=== PATIENT | male | born 1965 | race Caucasian/White ===

== ENCOUNTER 2016-09-17 13:57 | Emergency (ER) | payer MEDICARE, MEDICAID ==
[~2016-09-17] VITALS: Ht 175.3 cm; Wt 99.8 kg
[~2016-09-17 13:57] MED LIST: ABIL5TAB5 PO; DOXY150C PO; MOTR200T44 PO; TYLE325T5 PO; augmentin OR; cipro OR; lithium OR
[2016-09-17] MEDS ORDERED: BUPR150T3 (14:14)
[2016-09-17] MEDS ORDERED: ASPI81TA85 PO (14:14)
[2016-09-17] MEDS ORDERED: VERA240C (14:14)
[2016-09-17] MEDS ORDERED: LAMO200T (14:14)
[2016-09-17] MEDS ORDERED: ACETAMINOPH W/CODEINE #3 TAB UD PO ONE (15:45)
[2016-09-17] MEDS ORDERED: LIDOCAINE VISCOUS 2% SOLN 15ML UDC MT ONE (15:45)
[2016-09-17] MEDS ORDERED: AMOX875T PO (15:50)
[2016-09-17] MEDS ORDERED: ACET30TAB PO (15:50)
[2016-09-17 16:09] VITALS: BP 129/95
== END 2016-09-17 16:09 | disposition home or self-care (01) ==
LOC: M ED 15:37
DX: K08.89 Other specified disorders of teeth and supporting structures (principal)

== ENCOUNTER 2017-03-21 07:26 | Emergency (ER) | payer MEDICARE, MEDICAID ==
[~2017-03-21] VITALS: Ht 177.8 cm; Wt 100.0 kg
[~2017-03-21 07:26] MED LIST changes: +ABIL1TAB11 PO; -ABIL5TAB5 PO; +ACET30TAB PO; +AMOX875T PO; +ASPI81TA85 PO; +BUPR150T3; +LAMO200T PO; +VERA240C; -lithium OR; +lithium PO
[2017-03-21] MEDS ORDERED: ASPIRIN 81 MG CHEW TABLET PO ONE (08:45)
[2017-03-21 09:04] LABS: BASO % 0.8 % (0.0-1.0); EOS # 0.2 K/mm3 (0.0-0.50); EOS % 4.5 % (0.0-3.0); LARGE UNSTAINED CELL # 0.1 K/mm3 (0.0-0.4); LARGE UNSTAINED CELL % 2.5 % (0.0-4.0); LYMPH # 1.5 K/mm3 (1.5-4.5); LYMPH % 27.4 % (24.0-44.0); MEAN CORPUSCULAR HEMOGLOBIN 33.5 pg (27.0-33.0); MEAN CORPUSCULAR HGB CONC 34.6 g/dl (32.0-36.5); MONO # 0.3 K/mm3 (0.0-0.8); MONO % 5.7 % (0.0-5.0); NEUTROPHILS # 3.3 K/mm3 (1.8-7.7); NEUTROPHILS % 59.1 % (36.0-66.0); PLATELET COUNT, AUTOMATED 258 k/mm3 (150-450); RED CELL DISTRIBUTION WIDTH 12.2 % (11.5-14.5); WHITE BLOOD COUNT 5.5 K/mm3 (4.0-10.0)
[2017-03-21 09:17] LABS: ALBUMIN 3.8 GM/DL (3.2-5.2); ALKALINE PHOSPHATASE 58 U/L (45-117); ALT/SGPT 153 U/L (12-78); ANION GAP 10 MEQ/L (8-16); AST/SGOT 65 U/L (15-37); BILIRUBIN,DIRECT 0.2 MG/DL (0.0-0.2); BILIRUBIN,TOTAL 0.9 MG/DL (0.2-1.0); BLOOD UREA NITROGEN 18 MG/DL (7-18); CALCIUM LEVEL 8.6 MG/DL (8.5-10.1); CARBON DIOXIDE LEVEL 23 MEQ/L (21-32); CHLORIDE LEVEL 109 MEQ/L (98-107); CREATININE FOR GFR 0.87 MG/DL (0.70-1.30); GLOMERULAR FILTRATION RATE > 60.0 (>56); GLUCOSE, FASTING 111 MG/DL (70-105); POTASSIUM SERUM 4.1 MEQ/L (3.5-5.1); SODIUM LEVEL 142 MEQ/L (136-145); TOTAL PROTEIN 7.6 GM/DL (6.4-8.2)
[2017-03-21 09:24] VITALS: BP 119/85
--- NOTE | 2017-03-21 09:24 | REP ---
CHEST, SINGLE VIEW: There is no evidence of acute infiltrate. No pleural effusion is seen. The heart is normal in size. The mediastinal silhouette is unremarkable. The visualized osseous structures are intact. IMPRESSION: No acute pulmonary disease. Signed by Rupesh Mcclendon MD 03/21/2017 01:45 P
--- NOTE | 2017-03-21 20:09 | ECGEPIP ---
Stationary ECG Study [facility] - ED Test Date: 2017-03-21 Pat Name: KAYLENE WERNER Department: Room: - Gender: M Glove Turner And Former Automatic: arielle : 1965 Requested By: Eduin Lazo Order Number: [id number] Reading MD: Eduin Moore Measurements Intervals [place] Rate: 74 P: 45 [place]: 183 QRS: 21 QRSD: 99 T: 30 QT: 367 QTc: 408 Interpretive Statements SINUS RHYTHM POSSIBLE LAE SIMILAR TO 10/02/15 Electronically Signed On 03-21-2017 20:08:54 EDT by Eduin Moore
[2017-05-08] MEDS ORDERED: FLON1SPR (19:38)
[2017-05-08] MEDS ORDERED: TESS100C PO (19:38)
[2017-05-08] MEDS ORDERED: AUGM875T28 PO (19:38)
== END 2017-03-21 09:28 | disposition home or self-care (01) ==
LOC: M ED 07:26
DX: R07.89 Other chest pain (principal); Z72.0 Tobacco use

== ENCOUNTER 2017-07-17 13:30 | Emergency (ER) | payer MEDICARE, MEDICAID ==
[2017-07-17 14:14] LABS: BEDSIDE GLUCOSE 114 MG/DL (70-105)
[2017-07-17 14:22] LABS: BASO # 0.1 10^3/uL (0.0-0.2); BASO % 0.5 % (0.0-1.0); EOS # 0.2 10^3/uL (0.0-0.50); EOS % 2.1 % (0.0-3.0); HEMATOCRIT 41.2 % (42.0-52.0); HEMOGLOBIN 13.9 g/dl (14.0-18.0); IMMATURE GRANULOCYTE % 0.3 % (0-0); LYMPH # 2.8 10^3/uL (1.5-4.5); LYMPH % 27.2 % (24.0-44.0); MEAN CORPUSCULAR HEMOGLOBIN 32.5 pg (27.0-33.0); MEAN CORPUSCULAR HGB CONC 33.7 g/dl (32.0-36.5); MEAN CORPUSCULAR VOLUME 96.3 fl (80.0-96.0); MONO # 1.2 10^3/uL (0.0-0.8); MONO % 11.6 % (0.0-5.0); NEUTROPHILS % 58.3 % (36.0-66.0); PLATELET COUNT, AUTOMATED 440 10^3/uL (150-450); RED BLOOD COUNT 4.28 10^6/uL (4.30-6.10); RED CELL DISTRIBUTION WIDTH 12.1 % (11.5-14.5); WHITE BLOOD COUNT 10.3 10^3/uL (4.0-10.0)
[2017-07-17 14:31] LABS: ANION GAP 4 MEQ/L (8-16); BLOOD UREA NITROGEN 13 MG/DL (7-18); CARBON DIOXIDE LEVEL 28 MEQ/L (21-32); CHLORIDE LEVEL 106 MEQ/L (98-107); CREATININE FOR GFR 0.97 MG/DL (0.70-1.30); GLOMERULAR FILTRATION RATE > 60.0 (>56); GLUCOSE, FASTING 105 MG/DL (70-105); SODIUM LEVEL 138 MEQ/L (136-145)
[2017-07-17 14:47] LABS: SALICYLATE LEVEL < 1.7 MG/DL (5.0-30.0)
[2017-07-17] MEDS: MECLIZINE 25 MG TABLET PO (15:05)
[2017-07-21 00:06] LABS: LAMOTRIGINE (LAMICTAL) 5.3 ug/mL (2.0-20.0)
== END 2017-07-17 17:04 | disposition home or self-care (01) ==
LOC: M ED 13:30
DX: R42 Dizziness and giddiness (principal); H93.13 Tinnitus, bilateral; R00.0 Tachycardia, unspecified; F33.9 Major depressive disorder, recurrent, unspecified; Z82.49 Family history of ischemic heart disease and other diseases of the circulatory system; F12.20 Cannabis dependence, uncomplicated
CPT/HCPCS: 93005

== ENCOUNTER → 2017-07-23 | Outpatient (CLI) | payer MEDICARE, MEDICAID ==
[2017-07-23 11:56] LABS: BLOOD UREA NITROGEN 19 MG/DL (7-18)
[2017-07-23 11:56] LABS: CREATININE FOR GFR 1.02 MG/DL (0.70-1.30); GLOMERULAR FILTRATION RATE > 60.0 (>56); THYROID STIMULATING HORMONE 0.655 uIU/ML (0.358-3.740)
[2017-07-23 11:59] LABS: LITHIUM LEVEL 0.77 MEQ/L (0.60-1.20)
[2017-07-27 14:15] LABS: LAMOTRIGINE (LAMICTAL) 2.5 ug/mL (2.0-20.0)
== END ==
LOC: M LAB 10:36
DX: F31.9 Bipolar disorder, unspecified (principal)
CPT/HCPCS: 82565

== ENCOUNTER → 2017-08-23 | Outpatient (REF) | payer MEDICARE, MEDICAID ==
[2017-08-23 20:38] LABS: BASO # 0.1 10^3/uL (0.0-0.2); BASO % 0.8 % (0.0-1.0); EOS # 0.3 10^3/uL (0.0-0.50); EOS % 4.1 % (0.0-3.0); HEMATOCRIT 41.9 % (42.0-52.0); HEMOGLOBIN 14.1 g/dl (14.0-18.0); IMMATURE GRANULOCYTE % 0.4 % (0-3.0); LYMPH # 2.8 10^3/uL (1.5-4.5); MEAN CORPUSCULAR HEMOGLOBIN 32.9 pg (27.0-33.0); MEAN CORPUSCULAR HGB CONC 33.7 g/dl (32.0-36.5); MEAN CORPUSCULAR VOLUME 97.7 fl (80.0-96.0); MONO # 0.8 10^3/uL (0.0-0.8); MONO % 9.8 % (0.0-5.0); NEUTROPHILS # 3.8 10^3/uL (1.8-7.7); NEUTROPHILS % 48.9 % (36.0-66.0); PLATELET COUNT, AUTOMATED 290 10^3/uL (150-450); RED BLOOD COUNT 4.29 10^6/uL (4.30-6.10); RED CELL DISTRIBUTION WIDTH 12.7 % (11.5-14.5); WHITE BLOOD COUNT 7.8 10^3/uL (4.0-10.0)
[2017-08-23 21:03] LABS: TOTAL 25(OH) VITAMIN D 23.2 NG/ML (30.0-100.0)
[2017-08-23 21:12] LABS: ALBUMIN 3.9 GM/DL (3.2-5.2); ALBUMIN/GLOBULIN RATIO 1.15 (1.00-1.93); ALKALINE PHOSPHATASE 64 U/L (45-117); ALT/SGPT 115 U/L (12-78); ANION GAP 5 MEQ/L (8-16); AST/SGOT 54 U/L (7-37); BILIRUBIN,TOTAL 0.4 MG/DL (0.2-1.0); BLOOD UREA NITROGEN 16 MG/DL (7-18); CALCIUM LEVEL 8.4 MG/DL (8.5-10.1); CARBON DIOXIDE LEVEL 27 MEQ/L (21-32); CHLORIDE LEVEL 111 MEQ/L (98-107); CHOLESTEROL LEVEL 106 MG/DL (<200); CHOLESTEROL RISK RATIO 2.523 (<5); CREATININE FOR GFR 0.92 MG/DL (0.70-1.30); GLOMERULAR FILTRATION RATE > 60.0 (>56); GLUCOSE, FASTING 89 MG/DL (70-100); HDL CHOLESTEROL 42 MG/DL (>40); LDL CHOLESTEROL 54.2 MG/DL (<100); NON-HDL-C 64 MG/DL; POTASSIUM SERUM 4.7 MEQ/L (3.5-5.1); SODIUM LEVEL 143 MEQ/L (136-145); TOTAL PROTEIN 7.3 GM/DL (6.4-8.2); TRIGLYCERIDES LEVEL 49 MG/DL (<150)
[2017-08-23 21:42] LABS: ESTIMATED AVERAGE GLUCOSE 111 MG/DL (60-110); HEMOGLOBIN A1c 5.5 %
[2017-08-23 21:43] LABS: HIV 1&2 SCREEN CENTAUR NEGATIVE (NEGATIVE)
[2017-08-25 10:50] LABS: HEPATITIS C VIRUS ABY INDEX > 11.0 INDEX (<0.8)
[2017-08-28 00:06] LABS: HCV RNA NAA QUALITATIVE Positive (Negative)
== END ==
LOC: M LAB REF 20:15
DX: Z00.01 Encounter for general adult medical examination with abnormal findings (principal); Z11.3 Encounter for screening for infections with a predominantly sexual mode of transmission; B18.2 Chronic viral hepatitis C; E66.09 Other obesity due to excess calories
CPT/HCPCS: 84443

== ENCOUNTER → 2017-11-20 | Outpatient (CLI) | payer MEDICARE, MEDICAID ==
[2017-11-20 12:57] LABS: HEPATITIS B SURFACE ANTIBODY NEGATIVE (POSITIVE)
[2017-11-21 08:06] LABS: HEPATITIS A IgG TOTAL Negative (Negative)
[2017-11-22 08:06] LABS: HCV RNA (INTERNATIONAL UNITS) 19736000 IU/mL (.); HEPATITIS C QUANTITATION See Final Results IU/mL (.)
== END ==
LOC: M LAB 11:19
DX: B18.2 Chronic viral hepatitis C (principal)
CPT/HCPCS: 86706

== ENCOUNTER → 2017-12-25 | Outpatient (REF) | payer MEDICARE, MEDICAID ==
[2017-12-25 16:17] LABS: BASO # 0.1 10^3/uL (0.0-0.2); EOS # 0.4 10^3/uL (0.0-0.50); EOS % 4.3 % (0.0-3.0); HEMATOCRIT 43.6 % (42.0-52.0); IMMATURE GRANULOCYTE % 0.2 % (0-3.0); LYMPH # 2.8 10^3/uL (1.5-4.5); LYMPH % 33.9 % (24.0-44.0); MEAN CORPUSCULAR HEMOGLOBIN 33.3 pg (27.0-33.0); MEAN CORPUSCULAR HGB CONC 34.4 g/dl (32.0-36.5); MEAN CORPUSCULAR VOLUME 96.9 fl (80.0-96.0); MONO # 0.6 10^3/uL (0.0-0.8); MONO % 7.9 % (0.0-5.0); NEUTROPHILS # 4.3 10^3/uL (1.8-7.7); NEUTROPHILS % 52.7 % (36.0-66.0); PLATELET COUNT, AUTOMATED 291 10^3/uL (150-450); RED CELL DISTRIBUTION WIDTH 12.3 % (11.5-14.5); WHITE BLOOD COUNT 8.1 10^3/uL (4.0-10.0)
[2017-12-26 09:26] LABS: ALPHA FETOPROTEIN TUMOR QUANT 1.7 NG/ML (<8.1)
[2017-12-27 10:31] LABS: HEPATITIS B SURFACE ANTIGEN NEGATIVE (NEGATIVE)
[2017-12-29 15:02] LABS: ALPHA 2-MACROGLOBULIN 288 mg/dL (110-276); ALT 211 IU/L (0-55); APOLIPOPROTEIN A-1 130 mg/dL (101-178); FIBROSIS STAGE F1-F2 (.); GGT 55 IU/L (0-65); HAPTOGLOBIN 131 mg/dL (34-200); HEPATITIS B CORE ANTIBODY IGG Negative (Negative); HEPATITIS C VIRUS GENOTYPE 3 (.); NECROINFLAM SCORE 0.84 (0.00-0.17); NECROINFLAMM GRADE A3-Severe activity (.); TOTAL BILIRUBIN 0.3 mg/dL (0.0-1.2)
== END ==
LOC: M SFHCPLAZ 11:58
DX: B18.2 Chronic viral hepatitis C (principal); F31.75 Bipolar disorder, in partial remission, most recent episode depressed; F19.11 Other psychoactive substance abuse, in remission; Z87.898 Personal history of other specified conditions; Z79.899 Other long term (current) drug therapy; Z86.79 Personal history of other diseases of the circulatory system; Z87.891 Personal history of nicotine dependence
CPT/HCPCS: 84460

== ENCOUNTER 2018-07-18 15:05 | Emergency (ER) | payer MEDICARE, MEDICAID ==
[~2018-07-18] VITALS: Ht 177.8 cm; Wt 100.0 kg
[~2018-07-18 15:05] MED LIST changes: +AUGM875T28 PO; -BUPR150T3; +BUPR150T3 PO; +FLON1SPR; -LAMO200T PO; +LAMO200T2 PO; +MECL-68 PO; +MUCI30TA5 PO; +TESS100C PO
[2018-07-18 15:23] LABS: BASO # 0.1 10^3/uL (0.0-0.2); BASO % 0.5 % (0.0-1.0); EOS # 0.3 10^3/uL (0.0-0.50); EOS % 2.4 % (0.0-3.0); HEMOGLOBIN 15.6 g/dl (13.5-17.5); LYMPH # 3.3 10^3/uL (1.5-4.5); LYMPH % 26.4 % (24.0-44.0); MEAN CORPUSCULAR HEMOGLOBIN 33.1 pg (27.0-33.0); MEAN CORPUSCULAR HGB CONC 34.7 g/dl (32.0-36.5); MEAN CORPUSCULAR VOLUME 95.3 fl (80.0-96.0); MONO # 1.1 10^3/uL (0.0-0.8); MONO % 8.5 % (0.0-5.0); NEUTROPHILS # 7.8 10^3/uL (1.8-7.7); PLATELET COUNT, AUTOMATED 264 10^3/uL (150-450); RED BLOOD COUNT 4.72 10^6/uL (4.30-6.10); WHITE BLOOD COUNT 12.6 10^3/uL (4.0-10.0)
--- NOTE | 2018-07-18 15:38 | REP ---
Chest one-view HISTORY: Chest pain Comparison: 03/21/2017 The lungs are clear. The heart is normal in size. The pulmonary vasculature is normal in appearance. Impression: No acute disease. Electronically Signed by Lai Perez MD 07/18/2018 03:30 P
[2018-07-18 15:45] LABS: INR 0.96; PROTHROMBIN TIME 12.9 SECONDS (12.1-14.4)
[2018-07-18 16:01] LABS: ALBUMIN 3.8 GM/DL (3.2-5.2); ALT/SGPT 22 U/L (12-78); BILIRUBIN,DIRECT 0.1 MG/DL (0.0-0.2); BILIRUBIN,TOTAL 0.6 MG/DL (0.2-1.0); BLOOD UREA NITROGEN 21 MG/DL (7-18); CARBON DIOXIDE LEVEL 25 MEQ/L (21-32); CHLORIDE LEVEL 108 MEQ/L (98-107); CPK CREATINE PHOSPHOKINASE 185 U/L (39-308); CREATININE FOR GFR 1.02 MG/DL (0.70-1.30); GLOMERULAR FILTRATION RATE > 60.0 (>56); GLUCOSE, FASTING 121 MG/DL (70-100); LIPASE 191 U/L (73-393); MB/CK RELATIVE INDEX 1.14 (< OR =4); NT-PRO BNP 25 PG/ML (<125); SODIUM LEVEL 142 MEQ/L (136-145); TOTAL PROTEIN 7.2 GM/DL (6.4-8.2); TROPONIN I < 0.02 NG/ML (< 0.10)
[2018-07-18 19:25] LABS: CPK CREATINE PHOSPHOKINASE 160 U/L (39-308); MB/CK RELATIVE INDEX 1.12 (< OR =4); TROPONIN I < 0.02 NG/ML (< 0.10)
[2018-07-18 20:20] LABS: AMPHETAMINES LEVEL URINE NEGATIVE (NEGATIVE); BARBITURATES URINE NEGATIVE (NEGATIVE); BENZODIAZEPINES URINE NEGATIVE (NEGATIVE); CANNABINOIDS URINE POSITIVE (NEGATIVE); COCAINE METABOLITE URINE NEGATIVE (NEGATIVE); METHADONE URINE NEGATIVE (NEGATIVE); OPIATES URINE NEGATIVE (NEGATIVE); PHENCYCLIDINE URINE NEGATIVE (NEGATIVE)
[2018-07-18 21:20] VITALS: BP 126/84
--- NOTE | 2018-07-19 07:54 | ECGEPIP ---
Stationary ECG Study [facility] - ED Test Date: 2018-07-18 Pat Name: KAYLENE WERNER Department: Room: - Gender: M Media Analytics Manager: : 1965 Requested By: Delilah Paula Order Number: [id number] Reading MD: Eduin Moore Measurements Intervals [place] Rate: 108 P: 55 PA: 186 QRS: 28 QRSD: 93 T: 25 QT: 306 QTc: 411 Interpretive Statements SINUS TACHYCARDIA NSTTW ABNORMALITIES RATE CHANGE COMPARED TO 07/17/18 Electronically Signed On 07-19-2018 7:54:45 EST by Eduin Moore
--- NOTE | 2018-07-19 08:02 | ECGEPIP ---
Stationary ECG Study [facility] - ED Test Date: 2018-07-18 Pat Name: KAYLENE WERNER Department: Room: - Gender: M Quality Assurance Calibrator: ANSELMO : 1965 Requested By: Delilah Paula Order Number: [id number] Reading MD: Eduin Moore Measurements Intervals [place] Rate: 83 P: 59 [place]: 200 QRS: 26 QRSD: 96 T: 30 QT: 347 QTc: 410 Interpretive Statements SINUS RHYTHM NSTTW ABNORMALITIES RATE CHANGE COMPARED TO PRIOR ON SAME DATE Electronically Signed On 07-19-2018 8:02:11 EST by Eduin Moore
== END 2018-07-18 21:20 | disposition home or self-care (01) ==
LOC: EDBD 15:05 → M ED 15:05
DX: R00.2 Palpitations (principal)

== ENCOUNTER → 2018-11-08 | Outpatient (CLI) | payer MEDICARE, MEDICAID ==
[~2018-11-08] MED LIST changes: +ACET-716 PO; -ACET30TAB PO; +BUPR300T34 PO; +COLA100C5 PO; +GASTROGRAFIN SOLUTION 30ML (Q9963) As Ordered ONE; +ISOVUE-370 76% 100ML VIAL (Q9967) As Ordered ONE; +METO50TA7 PO
--- NOTE | 2018-11-08 17:12 | REP ---
REASON FOR EXAM: Melena. PRIORS: None. CONTRAST: 100 mL Isovue-370. The lung bases are clear. The liver, gallbladder, spleen, pancreas, adrenal glands, and right kidney are unremarkable. In the left kidney there are three tiny cortical cysts. The largest measures 1.8 cm and has water Hounsfield unit readings. The abdominal aorta and paraortic regions are within normal limits. The bowel loops and their mesenteries are within normal limits. There is no free fluid or free air. There is no intraabdominal mass or adenopathy. CT PELVIS: There is no mass or adenopathy. There is no free fluid or free air. The bowel loops and their mesenteries are within normal limits. Bone window technique throughout the exam shows the osseous structures to be within normal limits for the patient's age. IMPRESSION:There is no acute intraabdominal or intrapelvic disease. Findings are decreased above. A negative CT scan in regards to the bowel does not obviate further investigation of the bowel loops in patient's presenting with melena. Electronically Signed by Panchito Adan DO 11/09/2018 09:38 A
== END ==
LOC: M RAD 14:47
PROVIDERS: ATTEND Internal Medicine Gastroenterology
DX: N28.1 Cyst of kidney, acquired (principal)
CPT/HCPCS: 74177; Q9963; Q9967

== ENCOUNTER 2018-11-21 17:45 | Emergency (ER) | payer MEDICARE, MEDICAID ==
[~2018-11-21] VITALS: Ht 175.3 cm; Wt 86.4 kg
[~2018-11-21 17:45] MED LIST changes: -GASTROGRAFIN SOLUTION 30ML (Q9963) As Ordered ONE; -ISOVUE-370 76% 100ML VIAL (Q9967) As Ordered ONE; +PAXI10TA12 PO; -VERA240C; +VERA240C PO
[2018-11-21 18:22] LABS: BASO # 0.1 10^3/uL (0.0-0.2); BASO % 0.5 % (0.0-1.0); EOS # 0.2 10^3/uL (0.0-0.50); EOS % 1.8 % (0.0-3.0); HEMATOCRIT 45.1 % (42.0-52.0); HEMOGLOBIN 15.9 g/dl (13.5-17.5); LYMPH # 3.6 10^3/uL (1.5-4.5); LYMPH % 30.9 % (24.0-44.0); MEAN CORPUSCULAR HEMOGLOBIN 33.6 pg (27.0-33.0); MEAN CORPUSCULAR HGB CONC 35.3 g/dl (32.0-36.5); MEAN CORPUSCULAR VOLUME 95.3 fl (80.0-96.0); MONO # 0.8 10^3/uL (0.0-0.8); MONO % 6.8 % (0.0-5.0); NEUTROPHILS # 6.9 10^3/uL (1.8-7.7); NEUTROPHILS % 59.8 % (36.0-66.0); PLATELET COUNT, AUTOMATED 307 10^3/uL (150-450); RED BLOOD COUNT 4.73 10^6/uL (4.30-6.10); WHITE BLOOD COUNT 11.5 10^3/uL (4.0-10.0)
--- NOTE | 2018-11-21 18:27 | REP ---
Clinical: Acute chest pain . Comparison: 07/18/2018 . Findings: The mediastinum and cardiac silhouette are stable and within normal limits for portable technique. The lung booth are clear without acute consolidation, effusion, or pneumothorax. Skeletal structures are intact. Impression: No acute cardiopulmonary process appreciated. Electronically Signed by Arnold Pink MD 11/21/2018 06:18 P
[2018-11-21 18:32] LABS: INR 0.95; PROTHROMBIN TIME 12.8 SECONDS (12.1-14.4)
[2018-11-21 18:33] LABS: PARTIAL THROMBOPLASTIN TIME 33.1 SECONDS (25.4-37.6)
[2018-11-21 18:48] LABS: BLOOD UREA NITROGEN 25 MG/DL (7-18); CALCIUM LEVEL 9.2 MG/DL (8.5-10.1); CARBON DIOXIDE LEVEL 24 MEQ/L (21-32); CHLORIDE LEVEL 107 MEQ/L (98-107); CK-MB VALUE MASS < 1.0 NG/ML (<3.6); CPK CREATINE PHOSPHOKINASE 160 U/L (39-308); CREATININE FOR GFR 0.94 MG/DL (0.70-1.30); GLOMERULAR FILTRATION RATE > 60.0 (>56); GLUCOSE, FASTING 120 MG/DL (70-100); MB/CK RELATIVE INDEX 0.62 (< OR =4); POTASSIUM SERUM 3.9 MEQ/L (3.5-5.1); SODIUM LEVEL 139 MEQ/L (136-145); TROPONIN I < 0.02 NG/ML (< 0.10)
[2018-11-21 21:15] LABS: CK-MB VALUE MASS < 1.0 NG/ML (<3.6); CPK CREATINE PHOSPHOKINASE 158 U/L (39-308); MB/CK RELATIVE INDEX 0.63 (< OR =4); TROPONIN I < 0.02 NG/ML (< 0.10)
[2018-11-21 21:45] VITALS: BP 109/68
--- NOTE | 2018-11-22 07:27 | ECGEPIP ---
[facility] - ED Test Date: 2018-11-21 Pat Name: KAYLENE WERNER Department: Room: - Gender: Male Facilities Assistant: JILL : 1965 Requested By: ОЛЬГА Gaines Order Number: [id number] Reading MD: Eduin Moore Measurements Intervals [place] Rate: 95 P: 53 DC: 168 QRS: 3 QRSD: 101 T: 30 QT: 342 QTc: 431 Interpretive Statements SINUS RHYTHM SIMILAR TO 07/18/18 Electronically Signed on 11-22-2018 7:26:52 EDT by Eduin Moore
--- NOTE | 2018-11-22 07:29 | ECGEPIP ---
[facility] - ED Test Date: 2018-11-21 Pat Name: KAYLENE WERNER Department: Room: - Gender: Male Peoplesoft Programmer: Regis : 1965 Requested By: INGRID Burns Order Number: [id number] Reading MD: Eduin Moore Measurements Intervals [place] Rate: 69 P: 26 ME: 188 QRS: QRSD: 97 T: 21 QT: 385 QTc: 415 Interpretive Statements SINUS RHYTHM SIMILAR TO PRIOR ON SAME DATE Electronically Signed on 11-22-2018 7:28:49 EDT by Eduin Moore
== END 2018-11-21 22:08 | disposition home or self-care (01) ==
LOC: M ED 17:45
DX: R07.9 Chest pain, unspecified (principal); R00.0 Tachycardia, unspecified; R00.2 Palpitations; F33.9 Major depressive disorder, recurrent, unspecified; B19.20 Unspecified viral hepatitis C without hepatic coma; F19.11 Other psychoactive substance abuse, in remission; F10.11 Alcohol abuse, in remission

== ENCOUNTER 2018-12-03 12:02 | Day surgery (SDC) | payer MEDICARE, MEDICAID ==
[~2018-12-03] VITALS: Ht 175.3 cm; Wt 87.5 kg
[~2018-12-03 12:02] MED LIST changes: +LIDOCAINE 2% INJ 100 MG/5 ML SDV (FOR ANES.) As Ordered ONE; +NS 1,000 ML IV ONE; +PROPOFOL 200 MG/20 ML VIAL As Ordered ONE
--- NOTE | 2018-12-03 13:07 | ROOR ---
Patient Name: Frandy Hays Procedure Date: 12/03/2018 12:53 PM Date of : 1965 Age: 53 Room: [facility] Gender: Male Note Status: Finalized Procedure: Upper GI endoscopy Indications: Weight loss Providers: Edy HUNTER MD Referring MD: Latricia PAEZ NP Requesting Provider: Medicines: Monitored Anesthesia Care Complications: No immediate complications. Procedure: Pre-Anesthesia Assessment: - The heart rate, respiratory rate, oxygen saturations, blood pressure, adequacy of pulmonary ventilation, and response to care were monitored throughout the procedure. The Endoscope was introduced through the mouth, and advanced to the second part of duodenum. The upper GI endoscopy was accomplished without difficulty. The patient tolerated the procedure well. Findings: The esophagus was normal. The stomach was normal. The examined duodenum was normal. Biopsies for histology were taken with a cold forceps in the second portion of the duodenum for evaluation of celiac disease. Impression: - Normal esophagus. - Normal stomach. - Normal examined duodenum. - Biopsies were taken with a cold forceps for evaluation of celiac disease. Recommendation: - Telephone endoscopist for pathology results in 2 weeks. - Return to referring physician as previously scheduled. Edy Hunter MD Edy HUNTER MD 12/03/2018 1:06:58 PM Electronically signed by Edy HUNTER MD Number of Addenda: 0 Note Initiated On: 12/03/2018 12:53 PM Estimated Blood Loss: Estimated blood loss: none.
[2018-12-03] MEDS ORDERED: PROPOFOL 200 MG/20 ML VIAL As Ordered ONE (13:19)
--- NOTE | 2018-12-03 13:24 | ROOR ---
Patient Name: Frandy Hays Procedure Date: 12/03/2018 12:53 PM Date of : 1965 Age: 53 Room: [facility] Gender: Male Note Status: Finalized Procedure: Colonoscopy Indications: Hematochezia, Positive fecal immunochemical test Providers: Edy HUNTER MD Referring MD: Latricia PAEZ NP Requesting Provider: Medicines: Monitored Anesthesia Care Complications: No immediate complications. Procedure: Pre-Anesthesia Assessment: - The heart rate, respiratory rate, oxygen saturations, blood pressure, adequacy of pulmonary ventilation, and response to care were monitored throughout the procedure. The Colonoscope was introduced through the anus and advanced to 15 cm into the ileum. The colonoscopy was performed without difficulty. The patient tolerated the procedure well. The quality of the bowel preparation was good. Findings: The perianal and digital rectal examinations were normal. Internal hemorrhoids were found during retroflexion. The hemorrhoids were medium-sized. The entire examined colon appeared normal on direct and retroflexion views. The terminal ileum appeared normal. Impression: - Internal hemorrhoids. - The entire colon is normal on direct and retroflexion views. - The examined portion of the ileum was normal. - No specimens collected. Recommendation: - Use fiber, for example Citrucel, Fibercon, Konsyl or Metamucil. - Return to referring physician as previously scheduled. Edy Hunter MD Edy HUNTER MD 12/03/2018 1:23:39 PM Electronically signed by Edy HUNTER MD Number of Addenda: 0 Note Initiated On: 12/03/2018 12:53 PM Estimated Blood Loss: Estimated blood loss: none.
[2018-12-03 13:40] VITALS: BP 126/92
== END 2018-12-03 13:56 | disposition home or self-care (01) ==
LOC: M OPP 12:02
PROVIDERS: ATTEND Internal Medicine Gastroenterology
DX: K64.8 Other hemorrhoids (principal); K92.1 Melena; R19.5 Other fecal abnormalities; R63.4 Abnormal weight loss

== ENCOUNTER 2018-12-31 13:08 | Emergency (ER) | payer MEDICARE, MEDICAID ==
[~2018-12-31] VITALS: Ht 175.3 cm; Wt 87.7 kg
[~2018-12-31 13:08] MED LIST changes: -LIDOCAINE 2% INJ 100 MG/5 ML SDV (FOR ANES.) As Ordered ONE; -NS 1,000 ML IV ONE; -PROPOFOL 200 MG/20 ML VIAL As Ordered ONE
[2018-12-31] MEDS ORDERED: CYMB1CAP4 PO (13:31)
[2018-12-31] MEDS ORDERED: CLON-412 PO (13:31)
--- NOTE | 2018-12-31 14:09 | REP ---
Clinical: Head injury with loss of consciousness . Comparison: 05/08/2017 . Findings: The ventricles, sulci, and cisterns are normal in position and appearance. Mcclendon-white differentiation is maintained. No acute intracranial hemorrhage, mass/mass effect, pathology or trauma/injury. No evidence for acute infarction. No extra-axial fluid collection. Calvarium is intact. Mucoperiosteal changes to the frontal and ethmoid sinuses consistent with chronic sinusitis. Impression: Sinus disease. No evidence for acute intracranial pathology or trauma/injury. Electronically Signed by Arnold Pink MD 12/31/2018 02:00 P
[2018-12-31] MEDS ORDERED: IBUPROFEN 600 MG TAB PO ONE (14:45)
[2018-12-31] MEDS ORDERED: ADACEL/BOOSTRIX VACCINE (DIPHTH/PERTUSS/ACELL/TETANUS)0.5ML SYR (90715) IM ONE (14:45)
--- NOTE | 2018-12-31 14:59 | REP ---
Clinical: Trauma. Technique: Axial noncontrast images from the skull base to the thoracic inlet with coronal and sagittal re-formations. Findings: Moderate multilevel degenerative changes are appreciated including endplate sclerosis, marginal osteophytes, and disc space narrowing along with mild hypertrophic facet changes. Straightening of normal lordosis may be secondary to positioning versus pain/spasm. No acute fracture / compression injury or subluxation. Spinal canal is patent. Posterior elements and spinous processes are intact. Paravertebral soft tissues are normal. Impression: Moderate multilevel degenerative spondylosis. No acute fracture / compression injury or subluxation. Electronically Signed by Arnold Pink MD 12/31/2018 02:50 P
--- NOTE | 2018-12-31 15:02 | REP ---
Clinical: Trauma. Technique: Axial noncontrast images from T12 through mid sacrum with coronal and sagittal re-formations. Findings: Alignment is maintained. Vertebral bodies are intact. There is no evidence for acute fracture / compression injury or subluxation. Mild multilevel degenerative changes include endplate sclerosis with marginal spurring/osteophyte formation. Spinal canal is patent. Posterior elements and spinous processes are intact. Paravertebral soft tissues are normal. Impression: Mild multilevel degenerative changes. No acute fracture / compression injury or subluxation. Electronically Signed by Arnold Pink MD 12/31/2018 02:54 P
[2018-12-31 15:37] VITALS: BP 113/73
== END 2018-12-31 15:38 | disposition home or self-care (01) ==
LOC: M ED 13:08
DX: S80.211A Abrasion, right knee, initial encounter (principal); S09.90XA Unspecified injury of head, initial encounter; W01.198A Fall on same level from slipping, tripping and stumbling with subsequent striking against other object, initial encounter; Y92.838 Other recreation area as the place of occurrence of the external cause; Y93.01 Activity, walking, marching and hiking; M47.9 Spondylosis, unspecified; M54.9 Dorsalgia, unspecified; G43.909 Migraine, unspecified, not intractable, without status migrainosus; F32.9 Major depressive disorder, single episode, unspecified; Z79.899 Other long term (current) drug therapy

== ENCOUNTER 2019-01-03 22:16 | Inpatient (IN) | payer MEDICARE, MEDICAID ==
[~2019-01-03] VITALS: Ht 175.3 cm; Wt 84.8 kg
[~2019-01-03 22:16] MED LIST changes: +CLON-412 PO; +CYMB1CAP4 PO
[2019-01-03 22:48] LABS: HEMATOCRIT 39.5 % (42.0-52.0); HEMOGLOBIN 13.5 g/dl (13.5-17.5); MEAN CORPUSCULAR HEMOGLOBIN 33.9 pg (27.0-33.0); MEAN CORPUSCULAR HGB CONC 34.2 g/dl (32.0-36.5); MEAN CORPUSCULAR VOLUME 99.2 fl (80.0-96.0); PLATELET COUNT, AUTOMATED 246 10^3/uL (150-450); RED BLOOD COUNT 3.98 10^6/uL (4.30-6.10); WHITE BLOOD COUNT 6.9 10^3/uL (4.0-10.0)
[2019-01-03 23:25] LABS: ACETAMINOPHEN LEVEL < 2.0 UG/ML (10.0-30.0); ALBUMIN 3.9 GM/DL (3.2-5.2); ALT/SGPT 23 U/L (12-78); BILIRUBIN,DIRECT 0.2 MG/DL (0.0-0.2); BILIRUBIN,TOTAL 0.5 MG/DL (0.2-1.0); BLOOD UREA NITROGEN 17 MG/DL (7-18); CALCIUM LEVEL 8.3 MG/DL (8.5-10.1); CARBON DIOXIDE LEVEL 21 MEQ/L (21-32); CHLORIDE LEVEL 110 MEQ/L (98-107); CREATININE FOR GFR 0.98 MG/DL (0.70-1.30); ETHYL ALCOHOL (ETHANOL) 0.149 % (0.000-0.010); GLOMERULAR FILTRATION RATE > 60.0 (>56); GLUCOSE, FASTING 97 MG/DL (70-100); POTASSIUM SERUM 3.6 MEQ/L (3.5-5.1); SALICYLATE LEVEL 2.4 MG/DL (5.0-30.0); SODIUM LEVEL 144 MEQ/L (136-145); TOTAL PROTEIN 7.4 GM/DL (6.4-8.2)
[2019-01-04 00:07] LABS: AMPHETAMINES LEVEL URINE NEGATIVE (NEGATIVE); BARBITURATES URINE NEGATIVE (NEGATIVE); BENZODIAZEPINES URINE NEGATIVE (NEGATIVE); CANNABINOIDS URINE POSITIVE (NEGATIVE); COCAINE METABOLITE URINE POSITIVE (NEGATIVE); METHADONE URINE NEGATIVE (NEGATIVE); OPIATES URINE NEGATIVE (NEGATIVE); PHENCYCLIDINE URINE NEGATIVE (NEGATIVE)
[2019-01-04] MEDS ORDERED: MOM 30ML SUSPENSION UDC PO PRN (02:15)
[2019-01-04] MEDS ORDERED: MAALOX 30 ML SUSP *UDC PO PRN (02:15)
[2019-01-04] MEDS ORDERED: LORazepam 2 MG TAB PO PRN (02:15)
[2019-01-04] MEDS ORDERED: ACETAMINOPHEN TAB 650MG DOSE (2X325MG) PO PRN (02:15)
[2019-01-04] MEDS ORDERED: NICOTINE 21MG/24HR 1 EA TRANSDERMAL TD PRN (02:15)
[2019-01-04 03:11] VITALS: BP 124/88
[2019-01-04 03:13] VITALS: BP 124/88
[2019-01-04] MEDS: THIAMINE 100 MG TAB PO SCH ×3 (03:47→21:09)
[2019-01-04] MEDS ORDERED: BUPR300T34 PO (03:53)
[2019-01-04 04:00] VITALS: BP 124/88
[2019-01-04] MEDS: FOLIC ACID 1 MG TAB PO SCH (09:47)
[2019-01-04] MEDS: MULTIVITAMINS/MINERALS THERAP 1 TAB PO SCH (09:47)
[2019-01-04] MEDS: OLANZapine ORAL DISINTEGRATING TAB 5MG PO PRN (10:55)
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
[2019-01-04] MEDS ORDERED: DULoxetine 20 MG CAP (CYMBALTA) PO ONE (11:15)
[2019-01-04 18:00] VITALS: BP 130/79
[2019-01-05 06:40] VITALS: BP 142/90
[2019-01-05] MEDS: MULTIVITAMINS/MINERALS THERAP 1 TAB PO SCH (08:15)
[2019-01-05] MEDS: FOLIC ACID 1 MG TAB PO SCH (08:15)
[2019-01-05] MEDS: cloNIDine 0.1 MG TAB PO PRN (08:16)
[2019-01-05] MEDS: THIAMINE 100 MG TAB PO SCH ×2 (08:16→21:10)
[2019-01-05] MEDS: DULoxetine 20 MG CAP (CYMBALTA) PO SCH (08:16)
[2019-01-05] MEDS: OLANZapine ORAL DISINTEGRATING TAB 5MG PO PRN ×3 (09:19→21:10)
--- NOTE | 2019-01-05 12:37 | MHIPN ---
DATE: 01/05/2019 SUBJECTIVE: "I am less depressed, I do not have suicidal thoughts and Zyprexa is helping". OBJECTIVE: He is a 53-year-old male with history of depression and substance abuse who was admitted as his daughter called 911, but her father left home. He was seen wandering intoxicated. He complained of suicidal thoughts. Currently denies any suicidal thoughts and denies using alcohol regularly. He drank alcohol on 01/03/2019. He reports he has quit drinking a long time ago. MENTAL STATUS EXAMINATION: Well groomed with clean clothes. Behavior is cooperative. Made good eye contact. Mood is euthymic. Affect is full range. Speech rate, rhythm and volume are good. Thought process linear, goal directed. Thought content: Denied any delusions. Denies suicidal or homicidal ideas. He is alert, oriented to time, place, person and situation. His memory is normal. Insight and judgment are fair. VITAL SIGNS: Temperature 99, pulse 96, respirations 18, blood pressure 142/90. MEDICATIONS: - Cymbalta 20 mg daily - clonidine 0.1 mg three times a day as needed LABS: CBC and CMP within normal limits. Toxicology was positive for cocaine and cannabis. Ethyl alcohol level was 0.149. ASSESSMENT: Depressive disorder, not otherwise specified. Polysubstance use disorder. PLAN: Continue current medications. Consider referring him to rehabilitation. ESTIMATED LENGTH OF STAY: 2-3 days.
[2019-01-05 18:11] VITALS: BP 122/77
[2019-01-06 06:32] VITALS: BP 123/80
[2019-01-06] MEDS: DULoxetine 20 MG CAP (CYMBALTA) PO SCH (08:01)
[2019-01-06] MEDS: THIAMINE 100 MG TAB PO SCH (08:01)
[2019-01-06] MEDS: OLANZapine ORAL DISINTEGRATING TAB 5MG PO PRN ×2 (08:01→13:59)
[2019-01-06] MEDS: MULTIVITAMINS/MINERALS THERAP 1 TAB PO SCH (08:01)
[2019-01-06] MEDS: FOLIC ACID 1 MG TAB PO SCH (08:01)
--- NOTE | 2019-01-06 14:23 | MHIPN ---
DATE: 01/06/2019 SUBJECTIVE: I am feeling better. I do not have suicidal thoughts. OBJECTIVE: This is a 53-year-old male with a history of depression and substance abuse. He was admitted because of bizarre behavior after getting intoxicated on drugs. He also complained of suicidal thoughts but he currently denies. MENTAL STATUS EXAMINATION: Well groomed with clean clothes. Mood is cooperative. Made good eye contact. Mood is euthymic. Affect is full range. Speech rate, rhythm and volume are good. Thought process linear and goal directed. Thought content denied any delusions. Denied suicidal or homicidal ideas. He is alert and oriented to time place and person and situation. Insight and judgment are good. VITAL SIGNS: Temperature 98.0, pulse 62, respiratory rate 12, blood pressure 123/80. DIAGNOSIS: Depressive disorder unspecified. Polysubstance use disorder. PLAN: Since patient is improving. I will continue the same medication. Considering referring to a rehabilitation. Estimated length of stay 2-3 days.
[2019-01-06 18:11] VITALS: BP 125/79
[2019-01-06] MEDS: traZODone 50 MG TAB PO PRN (21:18)
[2019-01-06 21:19] VITALS: BP 154/92
[2019-01-06] MEDS: cloNIDine 0.1 MG TAB PO PRN (21:19)
[2019-01-06 22:00] VITALS: BP 125/79
[2019-01-07 06:00] VITALS: BP 134/82
[2019-01-07 08:00] VITALS: BP 132/82
[2019-01-07] MEDS: FOLIC ACID 1 MG TAB PO SCH (08:34)
[2019-01-07] MEDS: MULTIVITAMINS/MINERALS THERAP 1 TAB PO SCH (08:34)
[2019-01-07] MEDS: DULoxetine 20 MG CAP (CYMBALTA) PO SCH (08:34)
--- NOTE | 2019-01-07 12:24 | MHIPNPDOC ---
[facility] Progress Note Progress Note Inpatient Progress Note Frandy Handy Date of : N/A Date of Service: 01/07/2019 History of Present Illness The patient is a 53-year-old man with a history of alcohol use presents in an acutely decompensated state with reported safety issues. Interval History The patient is met with today. He describes that he is doing much better and that his medications currently in the unit are fairly helpful for his mood. He describes that he was originally told he would be leaving today but that due to a change in providers that he will not be discharged today. It is unclear as the patient was not originally slated for discharge as far as his provider was aware. No notations of any significant behavioral issues on the unit. Review Of Systems Denies any side effects of his medications. Psychotherapy None. Vital Signs Reviewed. Mental Status Examination General: Well dressed with good hygiene Speech: Spontaneous and fluid Thought processes: Linear and logical MSK: Smooth and coordinated gait, no signs of tremors or involuntary orofacial movements Thought content: Future orientated Abstract reasoning, and computation: Intact Description of associations: Intact Description of abnormal or psychotic thoughts: Denies any suicidal or homicidal ideation. Denies any auditory or visual hallucinations. Does not appear to be responding to internal stimuli. Does not appear to be endorsing any bizarre or paranoid ideation. Judgment: fair Insight: fair Orientation: Alert and orientated 3 Cognition: Grossly normal Recent and remote memory: Intact Attention span and concentration: Intact Fund of knowledge: Adequate Mood: "okay" Affect: Euthymic with a full range Diagnoses Unspecified depressive disorder. Alcohol use disorder, severe. Cocaine use disorder, severe. Cannabis use disorder, severe. Assessment and Plan The patient is a 53-year-old man with possible substance-induced depression presents due to being admitted after he had made passive suicidal statements. He reports doing well in the unit since resuming his home Cymbalta and clonidine. The plan is to continue his home medications as below as he has been on the unit doing well with them. Disposition The patient will continue to need an inpatient admission in order to create a safe discharge plan and to ensure a lower chance of readmission. Time Spent 15 minutes [id number]. Vital Signs Vital Signs Date Time Temp Pulse Resp B/P (MAP) Pulse Ox O2 Delivery O2 Flow Rate FiO2 01/07/19 08:00 66 132/82 01/07/19 06:00 98.7 18 01/05/19 06:40 97 01/04/19 01:25 Room Air Current Medications Current Medications Acetaminophen (Tylenol Tab) 650 mg Q6HP PRN PO HEADACHE or DISCOMFORT; Start 01/04/19 at 02:15 Al Hydrox/Mg Hydrox/Simethicone (Mylanta) 30 ml Q4HP PRN PO HEARTBURN/INDIGESTION; Start 01/04/19 at 02:15 Clonidine HCl (Catapres) 0.1 mg TID PRN PO ANXIETY/AGITATION Last administered on 01/06/19 21:19; Start 01/04/19 at 11:15 Duloxetine HCl (Cymbalta) 20 mg DAILY PO Last administered on 01/07/19 08:34; Start 01/05/19 at 09:00 Folic Acid (Folic Acid) 1 mg DAILY PO Last administered on 01/07/19 08:34; Start 01/04/19 at 09:00 Home Med (Med Rec Complete!) ASDIRECTED XX ; Start 01/04/19 at 04:00; Stop 01/04/19 at 04:00; Status DC Lorazepam (Ativan) 2 mg ASDIRECTED PRN PO SEE PROTOCOL; Start 01/04/19 at 02:15 Magnesium Hydroxide (Milk Of Magnesia) 30 ml DAILYPRN PRN PO CONSTIPATION; Start 01/04/19 at 02:15 Multivitamins (Theragram-M) 1 tab DAILY PO Last administered on 01/07/19 08:34; Start 01/04/19 at 09:00 Nicotine (Nicoderm Cq 21mg) 1 patch DAILY PRN TD CRAVING; Start 01/04/19 at 02:15 Olanzapine (ZyPREXA ZYDIS) 5 mg Q4HP PRN PO AGITATION Last administered on 01/06/19 13:59; Start 01/04/19 at 02:15 Thiamine HCl (Thiamine HCl) 100 mg BID PO Last administered on 01/06/19 08:01; Start 01/04/19 at 02:26; Stop 01/06/19 at 09:01; Status DC Trazodone HCl (Desyrel) 50 mg QHSP PRN PO INSOMNIA Last administered on 7/7/19at 21:18; Start 01/04/19 at 02:15 Allergies Coded Allergies: No Known Allergies (Verified , 01/03/19) SAL OVALLE DO Jan 07, 2019 12:24
[2019-01-07] MEDS: OLANZapine ORAL DISINTEGRATING TAB 5MG PO PRN ×2 (17:46→21:36)
[2019-01-07 18:00] VITALS: BP 137/84
[2019-01-07] MEDS: traZODone 50 MG TAB PO PRN (21:36)
[2019-01-08 06:49] VITALS: BP 125/79
[2019-01-08 07:40] VITALS: BP 125/79
[2019-01-08] MEDS: FOLIC ACID 1 MG TAB PO SCH (08:42)
[2019-01-08] MEDS: MULTIVITAMINS/MINERALS THERAP 1 TAB PO SCH (08:42)
[2019-01-08] MEDS: DULoxetine 20 MG CAP (CYMBALTA) PO SCH (08:42)
--- NOTE | 2019-01-08 10:23 | MHIPNPDOC ---
[facility] Progress Note Progress Note DATE OF SERVICE: 01/08/19 HISTORY: Patient is a 53 -year-old , male, with a history of substance abuse and depression, last admission [facility] 2002 who was brought to ED by EMS aft er pt's daugher called 911 b/c pt intoxicated with alcohol stating he was suicidal and then leaving the home to later by found [place] PD [place] [address] "to go to [place]" b/c he apparently has family there per ED. In ED pt was a poor historian and stated he didn't remember saying was suicidal and that [place] [address] [place] to hitchhike to [place]. He denied SI/HI, halluci nations, delusions in the ED. VITAL SIGNS: See below. NEW TEST RESULTS: See below. CURRENT MEDICATIONS: See below. MENTAL STATUS EXAMINATION: General Appearance: well groomed, appears stated age, hospital scubs/clothing Build: average Demeanor: average Eye Contact: average Activity: average Behavior: cooperative Speech: clear, spontaneous, reg/rate,rhythm,volume Mood: anxious Mood "ok" Affect: full, appropriate, congruent, anxious Thought Process: logical/linear, intact Thought Content (Delusions): none reported, denies SI, HI, AVH Thought Content (Other): none reported Thought Content (Aggressive): none reported Perception (Hallucinations): none reported Perception (Other): none reported Cognition (Impairment of): memory (lacks some memory of last night due to a lcohol intoxification) Cognition(Intelligence Est.): average Oriented: Awake, Alert, Oriented times three Insight: fair Judgment: Fair Psychosis: Denies DIAGNOSES: Depression unspecified R/O substance induced depression secondary alcohol alcohol/cocaine/cannabis use d/o ASSESSMENT:Pt seen and states that his mood is better. States he talked to his and plans to not drink anymore. States he slept well last night. Feels he is tolerating his medications and they're beneficial. He is not attending groups b/c "I don't care for them" and highly encouraged to go to learn coping skills for mood, anxiety, substance abuse. He denies SI/HI, hallucinations, delusions. Pt feels safe here. MANAGEMENT PLAN: d/c home tomorrow Medications: cymbalta 20mg daily clonidine 0.1mg tid prn anxiety TIME SPENT: 30 minutes. Vital Signs Vital Signs Date Time Temp Pulse Resp B/P (MAP) Pulse Ox O2 Delivery O2 Flow Rate FiO2 01/08/19 07:40 60 125/79 01/08/19 06:49 97.0 18 01/05/19 06:40 97 01/04/19 01:25 Room Air Current Medications Current Medications Acetaminophen (Tylenol Tab) 650 mg Q6HP PRN PO HEADACHE or DISCOMFORT; Start 01/04/19 at 02:15 Al Hydrox/Mg Hydrox/Simethicone (Mylanta) 30 ml Q4HP PRN PO HEARTBURN/INDIGESTION; Start 01/04/19 at 02:15 Clonidine HCl (Catapres) 0.1 mg TID PRN PO ANXIETY/AGITATION Last administered on 01/06/19at 21:19; Start 01/04/19 at 11:15 Duloxetine HCl (Cymbalta) 20 mg DAILY PO Last administered on 01/08/19at 08:42; Start 01/05/19 at 09:00 Folic Acid (Folic Acid) 1 mg DAILY PO Last administered on 01/08/19at 08:42; Start 01/04/19 at 09:00 Home Med (Med Rec Complete!) ASDIRECTED XX ; Start 01/04/19 at 04:00; Stop 01/04/19 at 04:00; Status DC Lorazepam (Ativan) 2 mg ASDIRECTED PRN PO SEE PROTOCOL; Start 01/04/19 at 02:15 Magnesium Hydroxide (Milk Of Magnesia) 30 ml DAILYPRN PRN PO CONSTIPATION; Start 01/04/19 at 02:15 Multivitamins (Theragram-M) 1 tab DAILY PO Last administered on 01/08/19at 08:42; Start 01/04/19 at 09:00 Nicotine (Nicoderm Cq 21mg) 1 patch DAILY PRN TD CRAVING; Start 01/04/19 at 02 :15 Olanzapine (ZyPREXA ZYDIS) 5 mg Q4HP PRN PO AGITATION Last administered on 01/07/19at 21:36; Start 01/04/19 at 02:15 Thiamine HCl (Thiamine HCl) 100 mg BID PO Last administered on 01/06/19at 08:01; Start 7/5/19 at 02:26; Stop 01/06/19 at 09:01; Status DC Trazodone HCl (Desyrel) 50 mg QHSP PRN PO INSOMNIA Last administered on 01/07/19at 21:36; Start 01/04/19 at 02:15 Allergies Coded Allergies: No Known Allergies (Verified , 01/03/19) CRISTOPHER ZEE DO Jan 08, 2019 10:23 am
[2019-01-08] MEDS: OLANZapine ORAL DISINTEGRATING TAB 5MG PO PRN (10:24)
[2019-01-08 18:00] VITALS: BP 131/86
[2019-01-08] MEDS: traZODone 50 MG TAB PO PRN (21:19)
[2019-01-09 06:54] VITALS: BP 136/79
[2019-01-09] MEDS: FOLIC ACID 1 MG TAB PO SCH (08:25)
[2019-01-09] MEDS: DULoxetine 20 MG CAP (CYMBALTA) PO SCH (08:25)
[2019-01-09] MEDS: MULTIVITAMINS/MINERALS THERAP 1 TAB PO SCH (08:25)
--- NOTE | 2019-01-09 09:11 | MHDSPDOC ---
[facility] Discharge Summary Discharge Summary DATE OF ADMISSION: Jan 04, 2019 at 2:12 am DATE OF DISCHARGE: January 09, 2019 DISCHARGE DIAGNOSES: Depression unspecified R/O substance induced depression secondary alcohol alcohol/cocaine/cannabis use d/o REASON FOR ADMISSION: Patient is a 53 -year-old , male, with a history of substance abuse and depression, last admission [facility] 2002 who was brought to ED by EMS after pt's daugher called 911 b/c pt intoxicated with alcohol stating he was suicidal and then leaving the home to later by found by PD [place] [address] "to go to [place]" b/c he apparently has family there per ED. In ED pt was a poor historian and stated he didn't remember saying was suicidal and that he was on [address] [place] try to hitchhike to [place]. He denied SI/HI, hallucinations, delusions in the ED. CONSULTANTS INVOLVED: none TREATMENT AND PROGRESS ON THE UNIT : Pt was admitted to [facility], seen for psychiatric assessment and restarted on his outpatient medication cymbalta 20mg daily for mood. He was provided clonidine 0.1mg tid prn anxiety and trazodone 50mg qhs prn insomnia. Pt found his medications beneficial and tolerated them well. He attended groups daily during his stay. His symptoms improved with treatment. On day of discharge he denied depression, anxiety, insomnia, SI/HI, hallucinations, delusions. He was discharged home with follow-up at [facility] and [facility] He felt safe for discharge. DISCHARGE ASSESSMENT: Pt seen and states that his mood is good and looking forward to going home today. States he talked to his and plans to not drink anymore and is motivated to stop. States he slept well last night. Feels he is tolerating his medications and they're beneficial. He is attending groups after highly encouraged to go to learn coping skills yesterday. He denies depression, anxiety, insomnia, SI/HI, hallucinations, delusions. Pt feels safe to be discharged home today MENTAL STATUS EXAMINATION ON DISCHARGE: General Appearance: well groomed, appears stated age, own clothing Build: average Demeanor: average Eye Contact: average Activity: average Behavior: cooperative Speech: clear, spontaneous, reg/rate,rhythm,volume Mood: euthymic, full Mood "good" Affect: full, appropriate, congruent Thought Process: logical/linear, intact Thought Content (Delusions): none reported, denies SI, HI, AVH Thought Content (Other): none reported Thought Content (Aggressive): none reported Perception (Hallucinations): none reported Perception (Other): none reported Cognition (Impairment of): memory (lacks some memory of admission night due to alcohol intoxification) that is now functioning normally with treatment and no alcohol use Cognition(Intelligence Est.): average Oriented: Awake, Alert, Oriented times three Insight: good Judgment: good Psychosis: Denies MEDICATIONS ON DISCHARGE: cymbalta 20mg daily clonidine 0.1mg tid prn anxiety PLAN/FOLLOWUP ARRANGEMENTS: d/c home with follow-up at [facility] and [facility]. The amount of time spent in the coordination of care for this patient was approximately 30 minutes. Vital Signs/I&Os Vital Signs Date Time Temp Pulse Resp B/P (MAP) Pulse Ox O2 Delivery O2 Flow Rate FiO2 01/09/19 06:54 97.4 74 14 136/79 (98) 01/05/19 06:40 97 01/04/19 01:25 Room Air Medications Scheduled Duloxetine HCl (Cymbalta) 20 Mg Capsule.dr, 20 MG PO DAILY for , (Reported) Scheduled PRN Clonidine HCl (Clonidine HCl) 0.1 Mg Tablet, 0.1 MG PO TID PRN for ANXIETY, (Reported) Allergies Coded Allergies: No Known Allergies (Verified , 01/03/19) CRISTOPHER ZEE DO Jan 09, 2019 9:11 am
[2019-01-09] MEDS ORDERED: CYMB1CAP4 PO (11:24)
[2019-01-09] MEDS ORDERED: CLON-412 PO (11:24)
== END 2019-01-09 11:55 | disposition home or self-care (01) | DRG 881 ==
LOC: M ED 22:16 → M ED INP 01-04 02:12 → M PSY 01-04 02:56
PROVIDERS: ADMIT Psychiatry & Neurology Psychiatry; ATTEND Psychiatry & Neurology Psychiatry
DX: F32.9 Major depressive disorder, single episode, unspecified (principal); F10.24 Alcohol dependence with alcohol-induced mood disorder; F14.20 Cocaine dependence, uncomplicated; F10.229 Alcohol dependence with intoxication, unspecified; F12.20 Cannabis dependence, uncomplicated; F17.200 Nicotine dependence, unspecified, uncomplicated; Z62.810 Personal history of physical and sexual abuse in childhood; Z62.811 Personal history of psychological abuse in childhood; Z79.899 Other long term (current) drug therapy

== ENCOUNTER → 2019-01-15 | Outpatient (CLI) | payer MEDICARE, MEDICAID ==
[2019-01-15 12:13] LABS: BASO # 0.1 10^3/uL (0.0-0.2); EOS # 0.3 10^3/uL (0.0-0.50); EOS % 5.4 % (0.0-3.0); HEMATOCRIT 40.4 % (42.0-52.0); HEMOGLOBIN 13.4 g/dl (13.5-17.5); LYMPH # 2.4 10^3/uL (1.5-4.5); LYMPH % 40.8 % (24.0-44.0); MEAN CORPUSCULAR HEMOGLOBIN 33.3 pg (27.0-33.0); MEAN CORPUSCULAR HGB CONC 33.2 g/dl (32.0-36.5); MEAN CORPUSCULAR VOLUME 100.5 fl (80.0-96.0); MONO # 0.7 10^3/uL (0.0-0.8); MONO % 11.5 % (0.0-5.0); NEUTROPHILS # 2.4 10^3/uL (1.8-7.7); PLATELET COUNT, AUTOMATED 267 10^3/uL (150-450); RED BLOOD COUNT 4.02 10^6/uL (4.30-6.10); WHITE BLOOD COUNT 5.9 10^3/uL (4.0-10.0)
[2019-01-15 12:24] LABS: INR 0.96; PROTHROMBIN TIME 12.5 SECONDS (11.8-14.0)
[2019-01-15 12:43] LABS: ALBUMIN 3.4 GM/DL (3.2-5.2); ALT/SGPT 24 U/L (12-78); BILIRUBIN,TOTAL 0.3 MG/DL (0.2-1.0); BLOOD UREA NITROGEN 18 MG/DL (7-18); CALCIUM LEVEL 8.8 MG/DL (8.5-10.1); CARBON DIOXIDE LEVEL 30 MEQ/L (21-32); CHLORIDE LEVEL 109 MEQ/L (98-107); CREATININE FOR GFR 0.72 MG/DL (0.70-1.30); GLOMERULAR FILTRATION RATE > 60.0 (>56); GLUCOSE, FASTING 92 MG/DL (70-100); POTASSIUM SERUM 4.6 MEQ/L (3.5-5.1); SODIUM LEVEL 141 MEQ/L (136-145)
[2019-01-17 14:07] LABS: HEPATITIS C QUANTITATION HCV Not Detected IU/mL (.)
== END ==
LOC: M LAB 11:17
PROVIDERS: ATTEND Internal Medicine Gastroenterology
DX: B18.2 Chronic viral hepatitis C (principal); K92.1 Melena

== ENCOUNTER 2019-04-05 17:28 | Emergency (ER) | payer MEDICARE, MEDICAID ==
[~2019-04-05] VITALS: Ht 175.3 cm; Wt 89.3 kg
[2019-04-05] MEDS ORDERED: OLAN5TAB (17:52)
[2019-04-05 17:57] LABS: BASO # 0.1 10^3/uL (0.0-0.2); BASO % 0.7 % (0.0-1.0); EOS # 0.2 10^3/uL (0.0-0.5); EOS % 2.3 % (0.0-3.0); HEMATOCRIT 45.2 % (42.0-52.0); HEMOGLOBIN 15.5 g/dl (13.5-17.5); LYMPH # 2.3 10^3/uL (1.5-5.0); LYMPH % 25.4 % (24.0-44.0); MEAN CORPUSCULAR HEMOGLOBIN 33.8 pg (27.0-33.0); MEAN CORPUSCULAR HGB CONC 34.3 g/dl (32.0-36.5); MEAN CORPUSCULAR VOLUME 98.7 fl (80.0-96.0); MONO # 0.9 10^3/uL (0.0-0.8); MONO % 10.4 % (0.0-5.0); NEUTROPHILS # 5.5 10^3/uL (1.5-8.5); NEUTROPHILS % 61.1 % (36.0-66.0); PLATELET COUNT, AUTOMATED 290 10^3/uL (150-450); RED BLOOD COUNT 4.58 10^6/uL (4.30-6.10); WHITE BLOOD COUNT 9.1 10^3/uL (4.0-10.0)
[2019-04-05 18:21] LABS: INR 1.04; PROTHROMBIN TIME 13.3 SECONDS (11.8-14.0)
[2019-04-05 18:40] LABS: ALBUMIN 3.8 GM/DL (3.2-5.2); ALT/SGPT 19 U/L (12-78); BILIRUBIN,DIRECT 0.1 MG/DL (0.0-0.2); BILIRUBIN,TOTAL 0.7 MG/DL (0.2-1.0); BLOOD UREA NITROGEN 24 MG/DL (7-18); CARBON DIOXIDE LEVEL 28 MEQ/L (21-32); CHLORIDE LEVEL 104 MEQ/L (98-107); CK-MB VALUE MASS < 1.0 NG/ML (<3.6); CPK CREATINE PHOSPHOKINASE 115 U/L (39-308); CREATININE FOR GFR 1.09 MG/DL (0.70-1.30); GLOMERULAR FILTRATION RATE > 60.0 (>56); GLUCOSE, FASTING 131 MG/DL (70-100); LIPASE 62 U/L (73-393); MB/CK RELATIVE INDEX 0.87 (< OR =4); NT-PRO BNP 22 PG/ML (<125); POTASSIUM SERUM 3.9 MEQ/L (3.5-5.1); SODIUM LEVEL 140 MEQ/L (136-145); TOTAL PROTEIN 7.6 GM/DL (6.4-8.2); TROPONIN I < 0.02 NG/ML (< 0.10)
--- NOTE | 2019-04-05 18:40 | REP ---
Portable chest, 05:46 p.m., single AP view with the patient upright: Comparison is 07/18/2018. The lung booth are clear. The cardiac size is normal. The ana, mediastinum, and skeletal structures are unremarkable. Impression: Negative portable chest. Electronically Signed by Rupesh Hart MD 04/05/2019 06:31 P
[2019-04-05] MEDS ORDERED: NS 1,000 ML IV ONE (19:15)
[2019-04-05 20:15] VITALS: BP 124/81
--- NOTE | 2019-04-07 08:03 | ECGEPIP ---
[facility] - ED Test Date: 2019-04-05 Pat Name: KAYLENE WERNER Department: Room: - Gender: Male Rn Hemodialysis: : 1965 Requested By: Delilah Paula Order Number: [id number] Reading MD: Delilah Paula Measurements Intervals [place] Rate: 107 P: 56 FL: 182 QRS: 19 QRSD: 97 T: 29 QT: 319 QTc: 426 Interpretive Statements SINUS TACHYCARDIA ABNORMAL RHYTHM ECG INCREASED RATE 11/21/18 Electronically Signed on 04-07-2019 8:03:07 EDT by Delilah Paula
== END 2019-04-05 20:32 | disposition home or self-care (01) ==
LOC: M ED 17:28
DX: R00.2 Palpitations (principal); R00.0 Tachycardia, unspecified; R94.31 Abnormal electrocardiogram [ECG] [EKG]; R06.02 Shortness of breath; I51.9 Heart disease, unspecified; Z82.49 Family history of ischemic heart disease and other diseases of the circulatory system; Z79.899 Other long term (current) drug therapy

== ENCOUNTER 2020-04-12 19:10 | Emergency (ER) | payer MEDICARE, MEDICAID ==
[~2020-04-12] VITALS: Ht 177.8 cm; Wt 90.9 kg
[~2020-04-12 19:10] MED LIST changes: -ASPI81TA85 PO; +ASPI81TA86 PO; -BUPR300T34 PO; +BUPR300T92 PO; -LAMO200T2 PO; +LAMO200T3 PO; -MECL-68 PO; +MECL1TAB31 PO; +OLAN5TAB
[2020-04-12 19:23] VITALS: BP 130/83
[2020-04-12] MEDS ORDERED: methocarbamoL 750 MG TAB PO ONE (19:30)
[2020-04-12] MEDS ORDERED: KETOROLAC 60MG 2ML VIAL IM ONE (19:30)
--- NOTE | 2020-04-12 20:22 | REPVR ---
PROCEDURE INFORMATION: Exam: XR Right Femur Exam date and time: 04/12/2020 7:47 PM Age: 55 years old Clinical indication: Pain; Hip; Right; Additional info: Right upper leg pain S/P fall TECHNIQUE: Imaging protocol: XR Right femur. Views: 2 views. COMPARISON: No relevant prior studies available. FINDINGS: Bones/joints: Unremarkable. No acute fracture. Soft tissues: Unremarkable. IMPRESSION: Negative right femur. Electronically signed by: Dirk Ramos On 04/12/2020 20:22:23 PM
[2020-04-12] MEDS ORDERED: CYCL-707 PO (20:33)
[2020-04-12] MEDS ORDERED: IBUP-1022 PO (20:33)
== END 2020-04-12 20:51 | disposition home or self-care (01) ==
LOC: M ED 19:10
DX: S76.311A Strain of muscle, fascia and tendon of the posterior muscle group at thigh level, right thigh, initial encounter (principal); W18.40XA Slipping, tripping and stumbling without falling, unspecified, initial encounter; Y92.099 Unspecified place in other non-institutional residence as the place of occurrence of the external cause; Y93.9 Activity, unspecified; Y99.9 Unspecified external cause status; F32.9 Major depressive disorder, single episode, unspecified; Z79.899 Other long term (current) drug therapy
CPT/HCPCS: 73552; 96372; 99284; J1885

== ENCOUNTER → 2022-07-14 | Outpatient (REF) | payer MEDICARE, MEDICAID ==
[~2022-07-14] MED LIST changes: +BUPR150T12 PO; -BUPR150T3 PO; +CYCL-707 PO; -DOXY150C PO; +DOXY150C3 PO; +IBUP-1022 PO; +OLAN1TAB16; -OLAN5TAB; -PAXI10TA12 PO; +PAXI10TA13 PO
[2022-07-14 17:50] LABS: HEMOGLOBIN A1c 5.5 % (4.0-6.0)
[2022-07-14 18:02] LABS: ALBUMIN 4.2 G/DL (3.2-5.2); ALKALINE PHOSPHATASE 93 U/L (46-116); ALT/SGPT 29 U/L (7.0-40); AST/SGOT 20 U/L (<34); BILIRUBIN,TOTAL 0.8 MG/DL (0.3-1.2); BLOOD UREA NITROGEN 18 MG/DL (9-23); CALCIUM LEVEL 9.5 MG/DL (8.5-10.1); CARBON DIOXIDE LEVEL 25 MMOL/L (20-31); CHLORIDE LEVEL 106 MMOL/L (98-107); CHOLESTEROL LEVEL 269 MG/DL (<200); CHOLESTEROL RISK RATIO 4.75 (<5); CREATININE FOR GFR 0.81 MG/DL (0.70-1.30); GLOMERULAR FILTRATION RATE > 60.0 (>56); GLUCOSE, FASTING 88 MG/DL (60-100); HDL CHOLESTEROL 56.6 MG/DL (>40); LDL CHOLESTEROL 188.2 MG/DL (<100); NON-HDL-C 212 MG/DL; SODIUM LEVEL 138 MMOL/L (136-145); TRIGLYCERIDES LEVEL 121 MG/DL (<150)
[2022-07-14 18:35] LABS: HIV 1&2 SCREEN CENTAUR NEGATIVE (NEGATIVE)
== END ==
LOC: M LAB REF 16:21
PROVIDERS: ATTEND Physician Assistant
DX: R73.01 Impaired fasting glucose (principal); E78.2 Mixed hyperlipidemia; Z11.4 Encounter for screening for human immunodeficiency virus [HIV]

== ENCOUNTER → 2022-11-14 | Outpatient (REF) | payer MEDICARE, MEDICAID ==
[2022-11-14 17:12] LABS: ALBUMIN 3.6 G/DL (3.2-5.2); ALKALINE PHOSPHATASE 104 U/L (46-116); ALT/SGPT 37 U/L (7.0-40); AST/SGOT 25 U/L (<34); BILIRUBIN,TOTAL 0.5 MG/DL (0.3-1.2); BLOOD UREA NITROGEN 18 MG/DL (9-23); CALCIUM LEVEL 8.9 MG/DL (8.5-10.1); CARBON DIOXIDE LEVEL 23 MMOL/L (20-31); CHLORIDE LEVEL 107 MMOL/L (98-107); CHOLESTEROL LEVEL 177 MG/DL (<200); CHOLESTEROL RISK RATIO 3.73 (<5); CREATININE FOR GFR 0.82 MG/DL (0.70-1.30); GLOMERULAR FILTRATION RATE > 60.0 (>56); GLUCOSE, FASTING 107 MG/DL (60-100); HDL CHOLESTEROL 47.4 MG/DL (>40); LDL CHOLESTEROL 107.8 MG/DL (<100); NON-HDL-C 129.6 MG/DL; POTASSIUM SERUM 4.2 MMOL/L (3.5-5.1); SODIUM LEVEL 140 MMOL/L (136-145); TOTAL PROTEIN 7.2 G/DL (5.7-8.2); TRIGLYCERIDES LEVEL 109 MG/DL (<150)
== END ==
LOC: M LAB REF 16:15
PROVIDERS: ATTEND Physician Assistant
DX: E78.2 Mixed hyperlipidemia (principal)

== ENCOUNTER 2023-04-27 13:31 | Emergency (ER) | payer MEDICARE, MEDICAID ==
[~2023-04-27] VITALS: Ht 175.3 cm; Wt 97.5 kg
[~2023-04-27 13:31] MED LIST changes: +MECL-209 PO; -MECL1TAB31 PO
[2023-04-27] MEDS ORDERED: ATOR1TAB19 (13:38)
[2023-04-27] MEDS ORDERED: DULO1CAP6 (13:38)
[2023-04-27] MEDS ORDERED: OLAN1TAB20 (13:38)
[2023-04-27] MEDS ORDERED: NS 1,000 ML IV ONE (16:25)
[2023-04-27] MEDS ORDERED: LIDOCAINE 5% (LIDODERM) PATCH TD ONE (16:25)
[2023-04-27] MEDS ORDERED: diazePAM 5MG TABLET PO ONE (16:25)
[2023-04-27 17:02] LABS: BASO # 0.1 10^3/uL (0.0-0.2); BASO % 0.7 % (0.0-1.0); EOS # 0.1 10^3/uL (0.0-0.5); EOS % 1.5 % (0.0-3.0); HEMATOCRIT 45.7 % (42.0-52.0); HEMOGLOBIN 15.9 g/dl (13.5-17.5); LYMPH # 2.2 10^3/uL (1.5-5.0); LYMPH % 27.6 % (24.0-44.0); MEAN CORPUSCULAR HEMOGLOBIN 33.3 pg (27.0-33.0); MEAN CORPUSCULAR HGB CONC 34.8 g/dl (32.0-36.5); MEAN CORPUSCULAR VOLUME 95.6 fl (80.0-96.0); MONO # 0.7 10^3/uL (0.0-0.8); MONO % 8.6 % (2.0-8.0); NEUTROPHILS % 61.4 % (36.0-66.0); PLATELET COUNT, AUTOMATED 326 10^3/uL (150-450); RED BLOOD COUNT 4.78 10^6/uL (4.30-6.10); WHITE BLOOD COUNT 8.1 10^3/uL (4.0-10.0)
[2023-04-27] MEDS ORDERED: LIDO5DIS41 TD (18:31)
[2023-04-27] MEDS ORDERED: IBUP-1022 PO (18:31)
[2023-04-27] MEDS ORDERED: METH-1164 PO (18:31)
[2023-04-27 18:42] VITALS: BP 141/99; TEMP 97.8; O2SAT 96
== END 2023-04-27 18:53 | disposition home or self-care (01) ==
LOC: M ED 13:31
DX: M50.30 Other cervical disc degeneration, unspecified cervical region (principal); G43.909 Migraine, unspecified, not intractable, without status migrainosus; F31.9 Bipolar disorder, unspecified; F10.10 Alcohol abuse, uncomplicated; Z79.891 Long term (current) use of opiate analgesic; Z79.02 Long term (current) use of antithrombotics/antiplatelets; Z79.899 Other long term (current) drug therapy

== ENCOUNTER 2023-11-24 15:44 | Emergency (ER) | payer MEDICARE, MEDICAID ==
[~2023-11-24] VITALS: Ht 175.3 cm; Wt 95.5 kg
[~2023-11-24 15:44] MED LIST changes: +ATOR1TAB19; +BUPR-597 PO; -BUPR300T92 PO; -DOXY150C3 PO; +DOXY150C5 PO; +DULO1CAP6; +LIDO5DIS41 TD; +METH-1164 PO; +OLAN1TAB20
[2023-11-24 17:01] LABS: BASO # 0.1 10^3/uL (0.0-0.2); BASO % 0.7 % (0.0-1.0); EOS # 0.1 10^3/uL (0.0-0.5); EOS % 1.2 % (0.0-3.0); HEMATOCRIT 44.8 % (42.0-52.0); HEMOGLOBIN 14.8 g/dl (13.5-17.5); LYMPH # 1.7 10^3/uL (1.5-5.0); LYMPH % 20.6 % (24.0-44.0); MEAN CORPUSCULAR HEMOGLOBIN 32.3 pg (27.0-33.0); MEAN CORPUSCULAR VOLUME 97.8 fl (80.0-96.0); MONO # 0.4 10^3/uL (0.0-0.8); MONO % 4.5 % (2.0-8.0); NEUTROPHILS % 72.3 % (36.0-66.0); PLATELET COUNT, AUTOMATED 316 10^3/uL (150-450); RED BLOOD COUNT 4.58 10^6/uL (4.30-6.10); WHITE BLOOD COUNT 8.3 10^3/uL (4.0-10.0)
[2023-11-24 17:27] LABS: LIPASE 22 U/L (12-53)
[2023-11-24 17:30] LABS: ALBUMIN 3.6 G/DL (3.2-5.2); ALKALINE PHOSPHATASE 96 U/L (46-116); ALT/SGPT 32 U/L (7.0-40); AST/SGOT 22 U/L (<34); BILIRUBIN,DIRECT 0.2 MG/DL (<0.4); BILIRUBIN,TOTAL 0.6 MG/DL (0.3-1.2); TOTAL PROTEIN 6.9 G/DL (5.7-8.2)
[2023-11-24 17:39] LABS: CK-MB VALUE MASS < 1.0 NG/ML (<3.6)
[2023-11-24 17:43] LABS: CPK CREATINE PHOSPHOKINASE 112 U/L (46-171); MB/CK RELATIVE INDEX 0.89 (< OR =4)
[2023-11-24] MEDS: METOCLOPRAMIDE INJ 10MG/2ML VIAL IV ONE (17:43)
[2023-11-24] MEDS: diphenhydrAMINE 50MG/ML VIAL IV ONE (17:43)
[2023-11-24] MEDS: MECLIZINE 25 MG TABLET PO ONE (17:43)
[2023-11-24 18:19] LABS: INR 0.99; PARTIAL THROMBOPLASTIN TIME 28.6 SECONDS (24.8-34.2); PROTHROMBIN TIME 12.8 SECONDS (12.5-14.5)
[2023-11-24] MEDS ORDERED: MECL-209 PO (20:33)
[2023-11-24] MEDS ORDERED: ONDA4TAB6 PO (20:33)
[2023-11-24 21:15] VITALS: BP 139/97; TEMP 98.6; O2SAT 95
== END 2023-11-24 21:15 | disposition home or self-care (01) ==
LOC: M ED 15:44
DX: R42 Dizziness and giddiness (principal); E78.5 Hyperlipidemia, unspecified; G43.909 Migraine, unspecified, not intractable, without status migrainosus; R56.9 Unspecified convulsions; R00.2 Palpitations; Z82.3 Family history of stroke; Z79.899 Other long term (current) drug therapy
CPT/HCPCS: 70450; 70544; 70547; 70551; 80047; 80076; 82550; 82553; 83605; 83690; 84484; 85025; 85610; 85730; 87486; 87581; 87633; 87798; 93005; 96374; 96375; 99284; J1200; J2765

== ENCOUNTER 2024-02-24 15:42 | Emergency (ER) | payer MEDICARE, MEDICAID ==
[~2024-02-24] VITALS: Ht 175.3 cm; Wt 95.3 kg
[~2024-02-24 15:42] MED LIST changes: +ONDA-282 PO
[2024-02-24 17:30] LABS: BASO # 0.1 10^3/uL (0.0-0.2); BASO % 0.5 % (0.0-1.0); EOS # 0.2 10^3/uL (0.0-0.5); EOS % 2.4 % (0.0-3.0); HEMATOCRIT 46.8 % (42.0-52.0); HEMOGLOBIN 15.8 g/dl (13.5-17.5); LYMPH # 2.7 10^3/uL (1.5-5.0); LYMPH % 26.9 % (24.0-44.0); MEAN CORPUSCULAR HEMOGLOBIN 32.6 pg (27.0-33.0); MEAN CORPUSCULAR HGB CONC 33.8 g/dl (32.0-36.5); MEAN CORPUSCULAR VOLUME 96.5 fl (80.0-96.0); MONO # 0.9 10^3/uL (0.0-0.8); MONO % 9.1 % (2.0-8.0); NEUTROPHILS % 60.9 % (36.0-66.0); PLATELET COUNT, AUTOMATED 317 10^3/uL (150-450); RED BLOOD COUNT 4.85 10^6/uL (4.30-6.10); WHITE BLOOD COUNT 9.9 10^3/uL (4.0-10.0)
[2024-02-24 17:40] LABS: ERYTHROCYTE SEDIMENTATION RATE 53 mm/hr (0-20)
[2024-02-24 17:55] LABS: ALBUMIN 3.9 G/DL (3.2-5.2); ALKALINE PHOSPHATASE 104 U/L (46-116); ALT/SGPT 23 U/L (7.0-40); AST/SGOT 11 U/L (<34); BILIRUBIN,DIRECT 0.2 MG/DL (<0.4); BILIRUBIN,TOTAL 0.6 MG/DL (0.3-1.2); BLOOD UREA NITROGEN 18 MG/DL (9-23); CALCIUM LEVEL 9.5 MG/DL (8.5-10.1); CARBON DIOXIDE LEVEL 27 MMOL/L (20-31); CHLORIDE LEVEL 107 MMOL/L (98-107); CREATININE FOR GFR 0.83 MG/DL (0.70-1.30); GLOMERULAR FILTRATION RATE > 60.0 (>56); GLUCOSE, FASTING 114 MG/DL (60-100); POTASSIUM SERUM 4.2 MMOL/L (3.5-5.1); SODIUM LEVEL 139 MMOL/L (136-145); TOTAL PROTEIN 7.7 G/DL (5.7-8.2)
[2024-02-24 18:02] LABS: PROCALCITONIN <0.04 ng/ml
[2024-02-24] MEDS: cefTRIAXone SOD 1 GM in D5W MINI-BAG PLUS 50 ML IV ONE (18:02)
[2024-02-24] MEDS: BOOSTRIX VACCINE (TETANUS/DIPHTH/ACEL. PERTUSSIS) 0.5ML SYR IM ONE (18:03)
[2024-02-24] MEDS ORDERED: CEPH500C PO (18:15)
[2024-02-24 18:57] VITALS: BP 142/94; TEMP 98.4; O2SAT 96
== END 2024-02-24 18:59 | disposition home or self-care (01) ==
LOC: M ED 15:42
DX: M70.22 Olecranon bursitis, left elbow (principal); Z79.899 Other long term (current) drug therapy
CPT/HCPCS: 73080; 80048; 80076; 83605; 84145; 85025; 85652; 86140; 87040; 90471; 90715; 96365; 99284; J0696

== ENCOUNTER 2024-05-06 12:21 | Observation (INO) | payer MEDICARE, MEDICAID ==
[~2024-05-06] VITALS: Ht 177.8 cm; Wt 90.6 kg
[~2024-05-06 12:21] MED LIST changes: +CEPH500C PO; -DULO1CAP6; +DULO1CAP6 PO
[2024-05-06] MEDS ORDERED: OLAN15TA69 PO (12:47)
[2024-05-06 12:50] LABS: BASO # 0.1 10^3/uL (0.0-0.2); BASO % 1.1 % (0.0-1.0); EOS # 0.3 10^3/uL (0.0-0.5); HEMATOCRIT 47.7 % (42.0-52.0); HEMOGLOBIN 16.3 g/dl (13.5-17.5); LYMPH # 2.8 10^3/uL (1.5-5.0); LYMPH % 33.1 % (24.0-44.0); MEAN CORPUSCULAR HEMOGLOBIN 32.3 pg (27.0-33.0); MEAN CORPUSCULAR HGB CONC 34.2 g/dl (32.0-36.5); MEAN CORPUSCULAR VOLUME 94.5 fl (80.0-96.0); MONO # 0.9 10^3/uL (0.0-0.8); MONO % 10.6 % (2.0-8.0); NEUTROPHILS # 4.3 10^3/uL (1.5-8.5); NEUTROPHILS % 52.1 % (36.0-66.0); PLATELET COUNT, AUTOMATED 313 10^3/uL (150-450); RED BLOOD COUNT 5.05 10^6/uL (4.30-6.10); WHITE BLOOD COUNT 8.3 10^3/uL (4.0-10.0)
[2024-05-06 13:14] LABS: LIPASE 28 U/L (12-53)
[2024-05-06 13:16] LABS: ALBUMIN 3.8 G/DL (3.2-5.2); ALKALINE PHOSPHATASE 99 U/L (40-129); ALT/SGPT 20 U/L (7.0-40); AST/SGOT 14 U/L (<34); BILIRUBIN,DIRECT 0.2 MG/DL (<0.4); BILIRUBIN,TOTAL 0.7 MG/DL (0.3-1.2); TOTAL PROTEIN 7.7 G/DL (5.7-8.2)
[2024-05-06] MEDS ORDERED: ISOVUE-370 76% 100ML VIAL As Ordered ONE (13:59)
[2024-05-06] MEDS: MORPHINE 4 MG/ML 1ML VIAL IV ONE (14:08)
[2024-05-06] MEDS: LABETALOL 100MG/20ML VIAL IV STA ×2 (14:31→16:29)
[2024-05-06 14:42] LABS: CK-MB VALUE MASS < 1.0 NG/ML (<3.6)
[2024-05-06 14:45] LABS: CPK CREATINE PHOSPHOKINASE 131 U/L (46-171); MB/CK RELATIVE INDEX 0.76 (< OR =4)
[2024-05-06] MEDS ORDERED: ATOR1TAB19 PO (16:24)
[2024-05-06] MEDS ORDERED: HOME MED LIST COMPLETE! XX SCH (16:25)
[2024-05-06] MEDS: NS 1,000 ML IV SCH (16:29)
[2024-05-06] MEDS: TAMSULOSIN 0.4 MG CAP PO ONE (16:29)
[2024-05-06] MEDS: KETOROLAC 30 MG/ML 1ML VIAL IV ONE (18:08)
[2024-05-06] MEDS ORDERED: DEXTROSE 50% 50ML SYRINGE IV PRN (18:25)
[2024-05-06] MEDS ORDERED: GLUCOSE 4 GM CHEW PO PRN (18:25)
[2024-05-06] MEDS ORDERED: GLUCAGON INJ 1MG VIAL SC PRN (18:25)
[2024-05-06 21:23] VITALS: BP 154/110; TEMP 98.2; O2SAT 94
[2024-05-07] MEDS: KETOROLAC 30 MG/ML 1ML VIAL IV SCH (02:36)
[2024-05-07 04:39] VITALS: BP 142/99; TEMP 98.2; O2SAT 96
[2024-05-07 06:05] LABS: MEAN CORPUSCULAR HGB CONC 34.1 g/dl (32.0-36.5); MEAN CORPUSCULAR VOLUME 94.1 fl (80.0-96.0); PLATELET COUNT, AUTOMATED 263 10^3/uL (150-450); WHITE BLOOD COUNT 10.8 10^3/uL (4.0-10.0)
[2024-05-07 06:19] LABS: HEMATOCRIT 41.4 % (42.0-52.0); HEMOGLOBIN 14.1 g/dl (13.5-17.5)
[2024-05-07 06:30] LABS: ALBUMIN 3.1 G/DL (3.2-5.2); ALKALINE PHOSPHATASE 84 U/L (40-129); ALT/SGPT 16 U/L (7.0-40); AST/SGOT 15 U/L (<34); BILIRUBIN,TOTAL 0.8 MG/DL (0.3-1.2); BLOOD UREA NITROGEN 12 MG/DL (9-23); CALCIUM LEVEL 8.8 MG/DL (8.5-10.1); CARBON DIOXIDE LEVEL 24 MMOL/L (20-31); CHLORIDE LEVEL 108 MMOL/L (98-107); CREATININE FOR GFR 0.84 MG/DL (0.70-1.30); GLOMERULAR FILTRATION RATE > 60.0 (>56); GLUCOSE, FASTING 102 MG/DL (60-100); POTASSIUM SERUM 3.8 MMOL/L (3.5-5.1); SODIUM LEVEL 138 MMOL/L (136-145); TOTAL PROTEIN 6.6 G/DL (5.7-8.2)
[2024-05-07] MEDS: ENOXAPARIN 40MG/0.4ML SYRINGE (J1650 PER 10MG) SC SCH (09:29)
[2024-05-07] MEDS ORDERED: IBUP-1114 PO (10:14)
[2024-05-07] MEDS ORDERED: FLOM0.4C39 PO (10:14)
[2024-05-07] MEDS ORDERED: OXYC1TAB23 PO (10:14)
== END 2024-05-07 11:25 | disposition home or self-care (01) ==
LOC: M ED 12:21 → EDBD 12:21 → M ED INP 18:19 → M MS5PR 21:11
PROVIDERS: ADMIT Student in an Organized Health Care Education/Training Program; ATTEND Internal Medicine
DX: N13.2 Hydronephrosis with renal and ureteral calculous obstruction (principal); N28.1 Cyst of kidney, acquired; I10 Essential (primary) hypertension; E78.5 Hyperlipidemia, unspecified; G43.909 Migraine, unspecified, not intractable, without status migrainosus; Z79.899 Other long term (current) drug therapy; F31.9 Bipolar disorder, unspecified; F32.A Depression, unspecified; F10.10 Alcohol abuse, uncomplicated; E66.9 Obesity, unspecified
CPT/HCPCS: 36415; 71046; 74177; 80047; 80053; 80076; 81001; 82550; 82553; 83690; 84484; 85025; 85027; 93005; 93041; 96361; 96372; 96374; 96375; 96376; 99285; G0378; J1650; J1885; J1920; Q9967

== ENCOUNTER 2025-01-27 11:12 | Emergency (ER) | payer MEDICARE, MEDICAID ==
[~2025-01-27] VITALS: Ht 175.3 cm; Wt 86.4 kg
[~2025-01-27 11:12] MED LIST changes: +ATOR1TAB19 PO; -BUPR-597 PO; +BUPR-766 PO; +IBUP-1114 PO; +LIDO1ADH93 TD; -LIDO5DIS41 TD; +OLAN15TA69 PO; +OXYC1TAB23 PO; +TAMS-18 PO
[2025-01-27 17:44] LABS: BASO # 0.1 10^3/uL (0.0-0.2); BASO % 0.5 % (0.0-1.0); EOS # 0.1 10^3/uL (0.0-0.5); EOS % 0.7 % (0.0-3.0); LYMPH # 2.5 10^3/uL (1.5-5.0); LYMPH % 22.0 % (24.0-44.0); MONO # 1.2 10^3/uL (0.0-0.8); MONO % 10.5 % (2.0-8.0); NEUTROPHILS # 7.6 10^3/uL (1.5-8.5); NEUTROPHILS % 66.0 % (36.0-66.0); PLATELET COUNT, AUTOMATED 296 10^3/uL (150-450)
[2025-01-27] MEDS ORDERED: ISOVUE-370 76% 100 ML VIAL As Ordered ONE (17:49)
[2025-01-27 17:56] LABS: ERYTHROCYTE SEDIMENTATION RATE 93 mm/hr (0-20)
[2025-01-27 18:07] LABS: INR 1.0
[2025-01-27 18:09] VITALS: TEMP 97.7
[2025-01-27 18:12] LABS: C REACTIVE PROTEIN QUANTITATIV 6.74 MG/DL (<1.0)
[2025-01-27 18:13] LABS: ALT/SGPT 22 U/L (7.0-40); AST/SGOT 26 U/L (<34); CALCIUM LEVEL 9.0 MG/DL (8.5-10.1); CARBON DIOXIDE LEVEL 23 MMOL/L (20-31); CHLORIDE LEVEL 102 MMOL/L (98-107); CK-MB VALUE MASS < 1.0 NG/ML (<3.6); CREATININE FOR GFR 0.73 MG/DL (0.70-1.30); GLOMERULAR FILTRATION RATE > 90.0 (>56); POTASSIUM SERUM 4.5 MMOL/L (3.5-5.1); SODIUM LEVEL 138 MMOL/L (136-145)
[2025-01-27 18:17] LABS: FREE T4 1.41 NG/DL (0.89-1.76)
[2025-01-27 18:19] LABS: CPK CREATINE PHOSPHOKINASE 90 U/L (46-171)
[2025-01-27 19:21] LABS: CK-MB VALUE MASS < 1.0 NG/ML (<3.6); CPK CREATINE PHOSPHOKINASE 88 U/L (46-171)
[2025-01-27] MEDS ORDERED: HOME MED LIST COMPLETE! XX SCH (20:15)
[2025-01-27] MEDS: AMPICILLIN SOD/SULBACTAM SOD 3 GM in DEXTROSE 5% (D5W) MINI-BAG PLU 100 ML IV ONE (20:18)
[2025-01-27] MEDS ORDERED: AZIT500T5 PO (21:55)
[2025-01-27 22:00] VITALS: BP 164/106
[2025-01-27 22:04] VITALS: O2SAT 95
== END 2025-01-27 22:15 | disposition home or self-care (01) ==
LOC: M ED 11:12
DX: R91.8 Other nonspecific abnormal finding of lung field (principal); F31.30 Bipolar disorder, current episode depressed, mild or moderate severity, unspecified; F10.10 Alcohol abuse, uncomplicated; F19.10 Other psychoactive substance abuse, uncomplicated; G43.909 Migraine, unspecified, not intractable, without status migrainosus; R42 Dizziness and giddiness; R00.0 Tachycardia, unspecified; F12.10 Cannabis abuse, uncomplicated; E78.5 Hyperlipidemia, unspecified; Z91.51 Personal history of suicidal behavior; Z79.899 Other long term (current) drug therapy
CPT/HCPCS: 71275; 80047; 80048; 80076; 82550; 82553; 83880; 84439; 84443; 84484; 85025; 85610; 85652; 85730; 86140; 90471; 93005; 93041; 94760; 96365; 96366; 99285; J0295; Q9967